=== PATIENT | male | born 1985 | race Caucasian/White ===

== ENCOUNTER 2017-07-26 12:57 | Day surgery (SDC) | payer MEDICAID, OTHER ==
[2017-07-26] MEDS ORDERED: Lidocaine 1% with EPINEPHrine 1:100,000 50 ML MDV ONE (13:12)
[2017-07-26] MEDS ORDERED: Bupivacaine 0.5% 50 ML MDV ONE (13:12)
[2017-07-26] MEDS ORDERED: fentaNYL 250 MCG/5 ML SDV ONE (13:25)
[2017-07-26] MEDS ORDERED: Succinylcholine/Normal Saline 200 MG/10 ML Syringe ONE (13:26)
[2017-07-26] MEDS ORDERED: Midazolam 1 MG/ML 2 ML SDV ONE (13:26)
[2017-07-26] MEDS ORDERED: Ondansetron 4 MG/2 ML SDV ONE (13:26)
[2017-07-26] MEDS ORDERED: Neostigmine Methylsulfate 1 MG/ML 5 ML Syringe ONE (13:26)
[2017-07-26] MEDS ORDERED: Dexamethasone 4 MG/ML SDV ONE (13:26)
[2017-07-26] MEDS ORDERED: Rocuronium 50 MG/5 ML Vial ONE (13:26)
[2017-07-26] MEDS ORDERED: Propofol 200 MG/20 ML SDV ONE (13:26)
[2017-07-26] MEDS ORDERED: Lactated Ringers 1,000 ML IV SCH ×2 (13:45→15:45)
[2017-07-26] MEDS ORDERED: cefOXitin 2 GM in Sodium Chloride 0.9% 50 ML IV ONE (13:50)
[2017-07-26] MEDS ORDERED: HYDROmorphone/Normal Saline 15 MG/30 ML PCA IV PRN (14:26)
[2017-07-26] MEDS ORDERED: Naloxone 0.4 MG/ML SDV IVPUSH PRN (14:26)
[2017-07-26] MEDS ORDERED: Naloxone 0.4 MG/ML SDV IV PRN (14:31)
[2017-07-26] MEDS ORDERED: fentaNYL 100 MCG/2 ML SDV ONE (15:00)
[2017-07-26] MEDS ORDERED: Ondansetron 4 MG/2 ML SDV IVPUSH PRN (15:32)
[2017-07-26] MEDS: Docusate Sodium 100 MG Cap PO SCH (20:50)
--- NOTE | 2017-07-26 22:52 | OR ---
DATE OF PROCEDURE: 07/26/2017 PREOPERATIVE DIAGNOSIS: Acute appendicitis. POSTOPERATIVE DIAGNOSIS: Acute appendicitis. PROCEDURE: Laparoscopic appendectomy. RETAIL SERVICE LEAD MERCHANDISER: Shiva Najera MS-3. ANESTHESIA: General endotracheal. INDICATION: This 32-year-old white male noted onset yesterday afternoon he says of right lower quadrant abdominal pain. This became worse over the evening. He vomited. As he did not get better today, he came in to be evaluated. He was found to be afebrile. He was tender in the right lower quadrant and elevated white count of approximately 18,000 with a left shift. A CT scan of his abdomen and pelvis was consistent with acute nonperforated appendicitis. He was taken to the operating room for a laparoscopic appendectomy. He has had no prior abdominal surgery. I counseled him for the procedure including risks and alternatives, and he gave his informed consent to proceed. DESCRIPTION OF PROCEDURE: After adequate general endotracheal anesthesia was obtained, a Santa catheter was placed. His abdomen was prepped and draped in the usual sterile fashion. Time-out was held. The leg compression stockings were in place and used during the entire procedure. An infraumbilical semicircular incision was made. Under direct vision, a 12 mm port was introduced in the abdomen through this incision using the Optiview technique. The camera was introduced into the abdomen and the abdomen was insufflated to a pressure of 20 mmHg with carbon dioxide. No evidence of intraabdominal injury was seen. Under direct vision, 12 mm ports were placed in the right upper and left lower quadrants. The appendix was dissected free. It was noted to be largely necrotic. The blood supply to it was essentially gone. We dissected free back to the base. We divided the appendix at the base with the endoscopic ODALYS using a blue load. The appendix was placed in a sample retrieval bag and the bag was elevated up through the anterior abdominal wall via the right upper quadrant port site. The right upper quadrant port was reintroduced back in the abdomen. The right lower quadrant was irrigated and suctioned dry. All looked well. The fascial closure device was used to place 0 Vicryl stitches in the right upper and left lower quadrant fascial defects. These were not tied down until they were both placed. When they were both placed, they were tied down. The infraumbilical port was removed with an interrupted stitch of 0 Vicryl used to close this fascial defect. However, before tying the stitch down, we did evacuate as much CO2 as we could from the abdomen. Lidocaine 1% with epinephrine in a 50:50 mix with 0.5% Marcaine was infiltrated about all incisions. A 4-0 Vicryl using a subcuticular stitch was placed to approximate the skin of the incisions. Dermabond was applied. The anesthesia was reversed. He was extubated and brought to the recovery room in good condition. Leonidas Guerrero MD /[id number]
[2017-07-27] MEDS ORDERED: Acetaminophen/HYDROcodone 325-5 MG Tab PO PRN (06:05)
--- NOTE | 2017-07-27 06:18 | PCM.SURGPN ---
- General Info Date of Service: 07/27/17 Date of Surgery/Procedure: 07/26/17 POD#: 1 Post-Op Diagnosis: Acute appendicitis Functional Status: Reports: Pain Controlled, Tolerating Diet (Clear liquid), Ambulating. Denies: Urinating (He is working on voiding. Does not want Santa yet. ) - Review of Systems General: Reports: No Symptoms HEENT: Reports: No Symptoms Pulmonary: Reports: No Symptoms Cardiovascular: Reports: No Symptoms Gastrointestinal: Reports: No Symptoms Genitourinary: Reports: No Symptoms Musculoskeletal: Reports: No Symptoms Skin: Reports: No Symptoms Neurological: Reports: No Symptoms Psychiatric: Reports: No Symptoms - Patient Data Vitals - Most Recent: Last Vital Signs Temp 96.4 F 07/27/17 02:49 Pulse 55 L 07/27/17 02:49 Resp 20 07/27/17 02:49 BP 99/53 L 07/27/17 02:49 Pulse Ox 91 L 07/27/17 03:36 Weight - Most Recent: 161 lb I&O - Last 24 Hours: Intake & Output 07/26/17 07/26/17 07/27/17 14:59 22:59 06:59 Intake Total 847 2719 Output Total 350 Balance 497 2719 Lab Results Last 24 Hrs: Laboratory Results - last 24 hr 07/27/17 07/27/17 Range/Units 05:05 05:05 WBC 14.7 H (4.5-11.0) K/uL RBC 5.04 (4.30-5.90) M/uL Hgb 15.2 H (12.0-15.0) g/dL Hct 45.4 (40.0-54.0) % MCV 90 (80-98) fL MCH 30 (27-31) pg MCHC 34 (32-36) % Plt Count 257 (150-400) K/uL Sodium 135 L (140-148) mmol/L Potassium 4.6 (3.6-5.2) mmol/L Chloride 99 L (100-108) mmol/L Carbon Dioxide 28 (21-32) mmol/L Anion Gap 12.6 (5.0-14.0) mmol/L BUN 9 (7-18) mg/dL Creatinine 1.0 (0.8-1.3) mg/dL Est Cr Clr Drug Dosing 100.99 mL/min Estimated GFR (MDRD) > 60 (>60) Glucose 95 (74-106) mg/dL Calcium 8.6 (8.5-10.1) mg/dL Med Orders - Current: Current Medications Hydrocodone Bitart/Acetaminophen ([place] 325-5 Mg) 1 - 2 tab PO Q4H PRN PRN Reason: Abdominal Pain Docusate Sodium (Colace) 100 mg PO BID [facility] Last Admin: 07/26/17 20:50 Dose: 100 mg Hydromorphone HCl (Dilaudid Soft Iron Inspector 15 Mg In Ns 30 Ml) 0 mg IV ASDIRECTED PRN; Protocol PRN Reason: Pain Last Admin: 07/26/17 14:38 Dose: 0.3 mg Lactated Ringer's (Ringers, Lactated) 1,000 mls @ 125 mls/hr IV ASDIRECTED [facility] Last Admin: 07/26/17 23:59 Dose: 125 mls/hr Naloxone HCl (Narcan) 0.1 mg IV ASDIRECTED PRN PRN Reason: decreased respiratory rate Ondansetron HCl (Zofran) 4 mg IVPUSH Q6H PRN PRN Reason: Nausea/Vomiting Discontinued Medications Bupivacaine HCl (Marcaine 0.5%) Confirm Administered Dose 50 ml .ROUTE .STK-MED ONE Stop: 07/26/17 13:13 Last Admin: 07/26/17 14:39 Dose: 10 ml Dexamethasone (Dexamethasone) Confirm Administered Dose 4 mg .ROUTE .STK-MED ONE Stop: 07/26/17 13:27 Fentanyl (Sublimaze) Confirm Administered Dose 250 mcg .ROUTE .STK-MED ONE Stop: 07/26/17 13:26 Fentanyl (Sublimaze) Confirm Administered Dose 100 mcg .ROUTE .STK-MED ONE Stop: 07/26/17 15:01 Glycopyrrolate () Confirm Administered Dose 1 mg .ROUTE .STK-MED ONE Stop: 07/26/17 13:27 Cefoxitin Sodium 2 gm/ Sodium (Chloride) 50 mls @ 100 mls/hr IV ONETIME ONE Stop: 07/26/17 14:19 Last Admin: 07/26/17 14:31 Dose: 100 mls/hr Lactated Ringer's (Ringers, Lactated) 1,000 mls @ 100 mls/hr IV ASDIRECTED [facility] Last Admin: 07/26/17 13:46 Dose: 100 mls/hr Lidocaine/Epinephrine (Xylocaine 1% With Epinephrine 1:100,000) Confirm Administered Dose 50 ml .ROUTE .STK-MED ONE Stop: 07/26/17 13:13 Last Admin: 07/26/17 14:39 Dose: 10 ml Midazolam HCl (Versed 1 Mg/Ml) Confirm Administered Dose 2 mg .ROUTE .STK-MED ONE Stop: 07/26/17 13:27 Neostigmine Methylsulfate (Neostigmine) Confirm Administered Dose 5 mg .ROUTE .STK-MED ONE Stop: 07/26/17 13:27 Ondansetron HCl (Zofran) Confirm Administered Dose 4 mg .ROUTE .STK-MED ONE Stop: 07/26/17 13:27 Propofol (Diprivan 20 Ml) Confirm Administered Dose 200 mg .ROUTE .STK-MED ONE Stop: 07/26/17 13:27 Rocuronium [place] (Zemuron) Confirm Administered Dose 50 mg .ROUTE .STK-MED ONE Stop: 07/26/17 13:27 Succinylcholine Chloride (Succinylcholine In Ns Pf) Confirm Administered Dose 200 mg .ROUTE .STK-MED ONE Stop: 07/26/17 13:27 - Exam Wound/Incisions: Healing Well, No Drainage Quality Assessment: DVT Prophylaxis General: Alert, Oriented, Cooperative Lungs: Clear to Auscultation, Normal Respiratory Effort Cardiovascular: Regular Rate, Regular Rhythm GI/Abdominal Exam: Normal Bowel Sounds, Soft, Non-Tender Extremities: Normal Inspection Skin: Warm, Dry, Intact Neurological: No New Focal Deficit Psy/Mental Status: Alert, Normal Affect, Normal Mood - Problem List & Annotations (1) Appendicitis SNOMED Code(s): 45368337 Code(s): K37 - UNSPECIFIED APPENDICITIS Status: Acute Current Visit: Yes - Problem List Review Problem List Initiated/Reviewed/Updated: Yes - My Orders Last 24 Hours: Active Orders 24 hr Category Date Time Status Patient Status [ADT] Routine ADT 07/26/17 15:32 Active Ambulate [RC] ASDIRECTED Care 07/26/17 15:32 Active Ambulate [RC] PER UNIT ROUTINE Care 07/26/17 15:32 Active Antiembolic Devices [RC] .Routine Care 07/26/17 15:35 Active Communication Order [RC] STAT Care 07/26/17 14:26 Active Intake and Output [RC] QSHIFT Care 07/26/17 15:34 Active Notify Provider Vital Signs [RC] PRN Care 07/26/17 15:34 Active Notify Provider [RC] PRN Care 07/26/17 14:26 Active Oxygen Therapy [RC] PRN Care 07/26/17 15:32 Active TEACHER ASSOCIATE Record [RC] PER UNIT ROUTINE Care 07/26/17 14:26 Active Pulse Oximetry [RC] CONTINUOUS Care 07/26/17 14:26 Active RT Incentive Spirometry [RC] ASDIRECTED Care 07/26/17 15:32 Active Up With Assistance [RC] ASDIRECTED Care 07/26/17 15:32 Active Up to Chair [RC] ASDIRECTED Care 07/26/17 15:32 Active VTE/DVT Education [RC] Click to Edit Care 07/26/17 15:35 Active Vital Signs [RC] Q4H Care 07/26/17 15:32 Active Respiratory Care Assess and Treatment [CONS] Routine Cons 07/26/17 15:32 Active Advance Diet Instructions [DIET] Diet 07/26/17 Dinner Active Acetaminophen/HYDROcodone [[place] 325-5 MG] Med 07/27/17 06:05 Ordered 1 - 2 tab PO Q4H PRN Docusate Sodium [Colace] Med 07/26/17 21:00 Active 100 mg PO BID HYDROmorphone/Normal Saline [Dilaudid TEACHER ASSOCIATE 15 MG in NS Med 07/26/17 14:26 Active 30 ML] See Protocol IV ASDIRECTED PRN Lactated Ringers [Ringers, Lactated] 1,000 ml Med 07/26/17 15:45 Active IV ASDIRECTED Naloxone [Narcan] Med 07/26/17 14:31 Active 0.1 mg IV ASDIRECTED PRN Ondansetron [Zofran] Med 07/26/17 15:32 Active 4 mg IVPUSH Q6H PRN Abdominal Binder [OM.PC] Per Unit Routine Oth 07/26/17 15:34 Ordered DVT/VTE Prophylaxis Reflex [OM.PC] Per Unit Routine Oth 07/26/17 15:35 Ordered Medication Discontinuation Instructions [OM.PC] Stat Oth 07/26/17 14:26 Ordered Sequential Compression Device [OM.PC] Routine Oth 07/26/17 15:32 Ordered Resuscitation Status Routine Resus Stat 07/26/17 15:32 Ordered Medication Orders Hydrocodone Bitart/Acetaminophen ([place] 325-5 Mg) 1 - 2 tab PO Q4H PRN PRN Reason: Abdominal Pain Docusate Sodium (Colace) 100 mg PO BID [facility] Last Admin: 07/26/17 20:50 Dose: 100 mg Hydromorphone HCl (Dilaudid Soft Iron Inspector 15 Mg In Ns 30 Ml) 0 mg IV ASDIRECTED PRN; Protocol PRN Reason: Pain Last Admin: 07/26/17 14:38 Dose: 0.3 mg Lactated Ringer's (Ringers, Lactated) 1,000 mls @ 125 mls/hr IV ASDIRECTED [facility] Last Admin: 07/26/17 23:59 Dose: 125 mls/hr Naloxone HCl (Narcan) 0.1 mg IV ASDIRECTED PRN PRN Reason: decreased respiratory rate Ondansetron HCl (Zofran) 4 mg IVPUSH Q6H PRN PRN Reason: Nausea/Vomiting - Assessment Assessment (Free Text/Narrative):: Doing well. Needs to void. Home today if he eats regular diet and can void. - Plan Plan (Free Text/Narrative):: See above note.
[2017-07-27] MEDS: Docusate Sodium 100 MG Cap PO SCH (09:05)
== END 2017-07-27 11:00 ==
LOC: JP.SDS 12:57 → JP.MS 15:32 → JP.SDS 07-27 11:00
PROVIDERS: ATTEND Surgery
DX: K35.3 Acute appendicitis with localized peritonitis (principal); F17.210 Nicotine dependence, cigarettes, uncomplicated
CPT/HCPCS: 36415; 44970; 80048; 85027; 88304; 94762; A9270; J0694; J1100; J1170; J2250; J2405; J2704; J3010; J7050; J7120

== ENCOUNTER 2019-05-26 17:40 | Emergency (ER) | payer OTHER ==
--- NOTE | 2019-05-26 18:25 | EDM.PDOC ---
ED HPI GENERAL MEDICAL PROBLEM - General Chief Complaint: Gastrointestinal Problem Stated Complaint: CHEST PAIN, LIGHT HEADED Time Seen by Provider: 05/26/19 18:10 Source of Information: Reports: Patient, Old Records History Limitations: Reports: No Limitations - History of Present Illness INITIAL COMMENTS - FREE TEXT/NARRATIVE: 33 yo male developed epigastric pain last night at his work [employer]. Drank 1 beer and several Pepsi's while there. Vomited once in the night. No blood in his emesis or stool. The epigastric pain has come and gone since it began, currently it is gone. Onset: Sudden Onset Date: 05/25/19 Onset Time: 20:00 Duration: Waxing/Waning Location: Reports: Abdomen (epigastric) Quality: Reports: Burning, Pressure Severity: Moderate (last night, now gone) Improves with: Reports: Other (unknown) Worsens with: Reports: Other (not certain) Context: Reports: Other (See HPI) Associated Symptoms: Reports: Nausea/Vomiting (not now) Treatments FISH ROE TECHNICIAN: Reports: Other (see below) (none) - Related Data Allergies Allergy/AdvReac Type Severity Reaction Status Date / Time No Known Allergies Allergy Verified 05/26/19 18:01 Home Meds: Home Meds NK [No Known Home Meds] 07/26/17 [History] Past Medical History Gastrointestinal History: Reports: None - Infectious Disease History Infectious Disease History: Reports: Chicken Pox - Past Surgical History Head Surgeries/Procedures: Reports: None GI Surgical History: Reports: Appendectomy Dermatological Surgical History: Reports: None Social & Family History - Family History Cardiac: Reports: Hypertension, [place], Stent Endocrine/Metabolic: Reports: Diabetes, type II, Hypoparathyroidism Oncologic: Reports: Brain - Tobacco Use Smoking Status *Q: Current Every Day Smoker Years of Tobacco use: 15 Packs/Tins Daily: 1 Used Tobacco, but Quit: No Second Hand Smoke Exposure: Yes - Caffeine Use Caffeine Use: Reports: Coffee, Soda - Recreational Drug Use Recreational Drug Use: No ED ROS GENERAL - Review of Systems Review Of Systems: See Below Constitutional: Reports: No Symptoms HEENT: Reports: No Symptoms Respiratory: Reports: No Symptoms Cardiovascular: Reports: Lightheadedness (not worse with standing, ? due to not sleeping) Endocrine: Reports: No Symptoms GI/Abdominal: Reports: Abdominal Pain (epigastric, not currently) : Reports: No Symptoms Musculoskeletal: Reports: No Symptoms Skin: Reports: No Symptoms Neurological: Reports: No Symptoms ED EXAM, GI/ABD - Physical Exam Exam: See Below Exam Limited By: No Limitations General Appearance: Alert, WD/WN, No Apparent Distress Eyes: Bilateral: Normal Appearance Ears: Normal External Exam, Normal Canal, Hearing Grossly Normal, Normal TMs Nose: Normal Inspection, No Blood Throat/Mouth: Normal Inspection, Normal Lips, Normal Oropharynx, Normal Voice, No Airway Compromise. No: Normal Teeth (poor dentition) Head: Atraumatic, Normocephalic Neck: Normal Inspection Respiratory/Chest: No Respiratory Distress, Lungs Clear, Normal Breath Sounds, No Accessory Muscle Use Cardiovascular: Regular Rate, Rhythm, No Edema GI/Abdominal Exam: Normal Bowel Sounds, Soft, Non-Tender, No Distention. No: Distended, Guarding, Rigid, Rebound, Tender, Abnormal Bowel Sounds, Hernia Back Exam: Normal Inspection Extremities: Normal Inspection, Normal Range of Motion, Non-Tender, No Pedal Edema Neurological: Alert, Oriented, CN II-XII Intact, Normal Cognition, No Motor/ Sensory Deficits Psychiatric: Normal Affect, Normal Mood Skin Exam: Warm, Dry, Intact, Normal Color, No Rash Course - Vital Signs Last Recorded V/S: Last Vital Signs Temp 37.2 C 05/26/19 18:02 Pulse 80 05/26/19 18:02 Resp 16 05/26/19 18:02 BP 131/73 05/26/19 18:02 Pulse Ox 96 05/26/19 18:02 Departure - Departure Time of Disposition: 18:25 Disposition: Home, Self-Care 01 Condition: Good Clinical Impression: Gastritis Qualifiers: Gastritis type: unspecified gastritis Chronicity: acute Gastritis bleeding: without bleeding Qualified Code(s): K29.00 - Acute gastritis without bleeding - Discharge Information *PRESCRIPTION DRUG MONITORING PROGRAM REVIEWED*: No *COPY OF PRESCRIPTION DRUG MONITORING REPORT IN PATIENT JACIEL: No Instructions: Gastritis, Adult, [id number] Referrals: PCP,None [Primary Care Provider] - Additional Instructions: Take omeprazole every day. Use acetaminophen as needed for pain relief. If needed add Maalox 30 ml after meals and at bedtime for symptomatic relief. Recheck in the clinic to see if they want to order a stool test on you. Things to avoid: alcohol, caffeine, tobacco, carbonated beverages, ibuprofen, Aleve, aspirin. Sepsis Event Note - Evaluation Sepsis Screening Result: No Definite Risk - Focused Exam Vital Signs: Vital Signs Temp Pulse Resp BP Pulse Ox 05/26/19 18:02 37.2 C 80 16 131/73 96 05/26/19 17:50 37.2 C 80 16 131/73 96 Date Exam was Performed: 05/26/19 Time Exam was Performed: 18:20
== END 2019-05-26 18:39 | disposition home or self-care (01) ==
LOC: JP.ED 17:40
DX: K29.00 Acute gastritis without bleeding (principal); F17.210 Nicotine dependence, cigarettes, uncomplicated; Z90.49 Acquired absence of other specified parts of digestive tract
CPT/HCPCS: 99284

== ENCOUNTER 2025-03-26 10:23 | Day surgery (SDC) | payer OTHER, BC ==
[~2025-03-26 10:23] MED LIST: Dexamethasone 4 MG/ML SDV ONE; Ondansetron 4 MG/2 ML SDV ONE; Propofol 200 MG/20 ML SDV ONE; Succinylcholine 200 MG/10 ML MDV ONE; fentaNYL 250 MCG/5 ML SDV ONE
[2025-03-26] MEDS: Lactated Ringers 1,000 ML IV SCH (11:15)
[2025-03-26] MEDS: metroNIDAZOLE/Normal Saline 500 MG in Premix Bag 1 BAG IV ONE (11:18)
[2025-03-26] MEDS ORDERED: Ketorolac 30 MG/ML SDV ONE (13:07)
[2025-03-26] MEDS: Acetaminophen/HYDROcodone 325-5 MG Tab PO PRN (14:34)
== END 2025-03-26 15:32 | disposition home or self-care (01) ==
LOC: JP.SDS 10:23
PROVIDERS: ATTEND Surgery
DX: K43.6 Other and unspecified ventral hernia with obstruction, without gangrene (principal); F17.210 Nicotine dependence, cigarettes, uncomplicated
CPT/HCPCS: 49594; A9270; C1781; J0169; J0330; J0665; J0690; J1100; J1836; J1885; J2405; J2704; J2795; J3010; J7120; 00790-QZ; J3490